=== PATIENT | female | born 1985 | race Caucasian/White ===

== ENCOUNTER 2025-04-05 19:19 | Emergency (ER) | payer SELFPAY ==
[2025-04-05 19:29] VITALS: BP 139/88; PULSE 94; RESP 18; TEMP 36.8; O2SAT 99
--- NOTE | 2025-04-05 19:30 | DI.RAD_ITS ---
Exam(s) XR SHOULDER RT COMPLETE 2+V EXAM: XR SHOULDER RT COMPLETE 2+V CLINICAL HISTORY: pain s/p fall. TECHNIQUE: 2D digital imaging was performed. Four views. COMPARISON: No exams were available for comparison FINDINGS: BONES: No acute fracture is present. No bony destructive lesion is seen. JOINTS: No dislocation present. SOFT TISSUE: There is a small calcification above the greater tuberosity consistent with calcific tendinosis. IMPRESSION: No acute abnormality. Mild calcific tendinosis. The preliminary [facility] report was reviewed. DATA REPOSITORY: RADIATION DOSE DELIVERED:
--- NOTE | 2025-04-05 19:44 | ED.GENADUL_ITS ---
Discharge Plan Disposition Patient Disposition: Home Condition: Stable Discharge Details Clinical Impression: Contusion of right shoulder Primary Care Provider: None,None ED Provider: John Canada Home Meds and New Rx's Prescriptions: Continued Nexplanon 68 mg implant 1 implant subdermal ONCE Rx Instructions: as a single dose Discharge Instructions Additional Instructions: Your x-ray did not show any broken bones or dislocations. You can take 1000 mg of acetaminophen and 600 mg of ibuprofen every 6 hours as needed. If not improving within 1 to 2 weeks follow-up with express care if you are unable to get established with a primary care provider. If you feel more ill, have severe worsening pain or new symptoms such as persistent vomiting return to the emergency department for reevaluation. Stand Alone Forms: Portal Information HPI General Mode of arrival: ambulatory . Date/Time Provider Initiated Documentation: 04/05/25 19:21 . Limitations to Documentation: no limitations . Information obtained by: patient . History of Present Illness 39 year old F presents to the emergency department with the chief complaint of right shoulder pain s/p fall, described as moderate, Quality is described as aching, and is localized to the right and upper extremity. Patient reports no radiation. Patient started experiencing this minute(s) (30) and it has been constant. Rest improves symptom(s), Movement worsens symptoms . Patient notes no other symptoms.. Patient did receive the following treatments prior to arrival, none Related Data Home Medications ?Medication ?Instructions ?Recorded ?Confirmed etonogestrel 68 mg subdermal 1 implant subdermal ONCE 04/05/25 04/05/25 implant (Nexplanon) Allergies Allergy/AdvReac Type Severity Reaction Status Date / Time No Known Allergies Allergy Unverified 04/05/25 19:34 General Stated Complaint: Orthopedic SLIME: 3 Review of Systems All systems reviewed & are unremarkable except as noted in HPI and below ENT Ears, Nose, Mouth, and Throat: Denies neck pain Cardiovascular Cardiovascular: Denies chest pain Gastrointestinal Gastrointestinal: Denies abdominal pain and Denies vomiting Musculoskeletal Musculoskeletal: Reports arthralgias and Denies neck pain Exam Const General: no acute distress Orientation: alert HENMT Head: normal to inspection Ears: external ears normal General nose exam: external nose normal Mouth: moist mucous membranes Eyes General: appearance normal, both eyes and all related structures Neck Neck: normal visual inspection and nontender Resp Effort & Inspection: normal respiratory effort and able to speak in complete sentences Cardio Rate: regular rate Skin General skin exam: no rashes or lesions noted Neuro General: patient alert and patient oriented x3 Extrem General: full ROM and capillary refill normal Psych Mental Status: mental status grossly normal Course Vital Signs Vital signs: Vital Signs Temperature 36.8 C 04/05/25 19:29 Pulse 94 H 04/05/25 19:29 Respiratory Rate 18 04/05/25 19:29 Blood Pressure 139/88 04/05/25 19:29 Pulse Oximetry 99 04/05/25 19:29 Temperature 36.8 C 04/05/25 19:29 Temperature Source Oral 04/05/25 19:29 Pulse 94 H 04/05/25 19:29 Respiratory Rate 18 04/05/25 19:29 Blood Pressure 139/88 04/05/25 19:29 Blood Pressure Position Sitting 04/05/25 19:29 Pulse Oximetry 99 04/05/25 19:29 Oxygen Delivery Method Room Air 04/05/25 19:29 Oxygen Flow Rate 0 04/05/25 19:29 Pain Level 8 04/05/25 19:29 Medical Decision Making 39-year-old female comes in after she was walking in [place] and on the stairs that she slipped down and landed on her right shoulder. Did not hit her head or have loss of consciousness. She has pain in the posterior right shoulder, denies any severe headache, neck pain, chest or abdomen pain. She has reproducible tenderness over the posterior shoulder. She is able to range it fully but with pain. She has no tenderness elsewhere in the arm with intact distal pulses. She has no midline C-spine or T-spine or L-spine tenderness. Full range of motion of her neck without any pain. I suspect sprain versus contusion versus fracture, will obtain x-rays of the shoulder to further evaluate. She has no signs of trauma to the head and has no severe headache or vomiting so I do not feel imaging of her head is indicated. X-ray on my read and virtual radiology read is negative for acute findings. She is stable and has no new pain elsewhere. Suspect shoulder sprain, versus contusion. Will provide a sling and she will follow-up with express care if not improving in 1 to 2 weeks and return precautions given. Differential Diagnosis Differential Diagnosis: Fracture, contusion, strain PFSH All Active Problems (Updated 04/05/25 @ 20:24 by John Canada MD) Contusion of right shoulder (Acute) Social History Smoking/Tobacco Use Status: Never Smoking risk assessment performed?: Yes Alcohol Intake: former Substance use type: does not use Do you feel safe at home: Yes Do you feel safe in your relationship?: Yes
[2025-04-05] MEDS: Ibuprofen 600 MG TAB PO (19:47)
--- NOTE | 2025-04-05 20:14 | DI.[facility]_ITS ---
PROCEDURE INFORMATION: Exam: XR Right Shoulder Exam date and time: 04/05/2025 7:57 PM Age: 39 years old Clinical indication: Injury or trauma; Work related; Blunt trauma (contusions or hematomas); Right; Injury date: 04/05/25; Injury details: Fall landing on shoulder TECHNIQUE: Imaging protocol: Radiologic exam of the right shoulder. Views: 2 or more views. COMPARISON: No relevant prior studies available. FINDINGS: Bones/joints: There is mild calcific tendinitis at the rotator cuff. No acute fracture or dislocation. No suspicious bony lesions. Joint spaces are preserved. Soft tissues: Unremarkable. IMPRESSION: 1. No acute radiographic findings. 2. If pain persists, consider repeat imaging in 5-7 days to exclude occult fracture. Dictated and Authenticated by: Karlene Nava MD. Orderin Dread Lopez MD
[2025-04-05] MEDS: Cyclobenzaprine 10 MG TAB, 3 TABS/BTL PO (20:29)
[2025-04-05 20:32] VITALS: RESP 18
== END 2025-04-05 20:40 | disposition home or self-care (01) ==
PROVIDERS: Emergency Provider Emergency Medicine
DX: S40.011A Contusion of right shoulder, initial encounter (principal); W10.9XXA Fall (on) (from) unspecified stairs and steps, initial encounter
CPT/HCPCS: 99283 ×2; 73030

== ENCOUNTER → 2025-04-12 11:26 | Outpatient (CLI) | payer SELFPAY ==
--- NOTE | 2025-04-12 | DI.RAD_ITS ---
Exam(s) XR THORACIC SPINE COMPLETE EXAM: XR THORACIC SPINE COMPLETE CLINICAL HISTORY: pain in thoracic, M54.6. TECHNIQUE: 2D digital imaging was performed of the thoracic spine. Three views were obtained. AP, swimmer's and lateral views were obtained. COMPARISON: No exams were available for comparison FINDINGS: BONES: There is no fracture or destructive lesion. There are degenerative changes seen in the thoracic spine characterized by joint space narrowing and osteophytes. DISKS:Alignment is within normal limits. There is mild joint space narrowing in the midthoracic spine. SOFT TISSUE: Visualized lungs are clear. 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 DATA REPOSITORY: RADIATION DOSE DELIVERED:
== END ==
LOC: DI 11:26
PROVIDERS: Visit Provider Nurse Practitioner Family
DX: M51.34 Other intervertebral disc degeneration, thoracic region (principal)
CPT/HCPCS: 72072